=== PATIENT | female | born 1970 | race Caucasian/White ===

== ENCOUNTER 2017-08-19 10:56 | Emergency (ER) | payer SELFPAY ==
[~2017-08-19] VITALS: Ht 165.1 cm; Wt 61.0 kg
[2017-08-19] MEDS ORDERED: LORTAB 5/3255 MG PO (11:37)
[2017-08-19] MEDS ORDERED: BACTRIM DS1 TAB PO (11:37)
[2017-08-19 11:48] VITALS: BP 120/79
== END 2017-08-19 11:57 | disposition home or self-care (01) | DRG 816 ==
LOC: ED 10:56
DX: L04.2 Acute lymphadenitis of upper limb (principal)

== ENCOUNTER 2017-11-01 16:00 | Emergency (ER) | payer SELFPAY ==
[~2017-11-01] VITALS: Ht 165.1 cm; Wt 60.8 kg
[~2017-11-01 16:00] MED LIST: BACTRIM DS1 TAB PO; LORTAB 5/3255 MG PO
[2017-11-01 17:13] LABS: INFLUENZA A NONE DETECTED (NONE DETECT); INFLUENZA B NONE DETECTED (NONE DETECT)
[2017-11-01] MEDS ORDERED: AFRIN 12 HOUR0.05 % (17:15)
[2017-11-01] MEDS ORDERED: MOTRIN800 MG PO (17:15)
[2017-11-01] MEDS ORDERED: TESSALON PER100 MG PO (17:15)
[2017-11-01] MEDS ORDERED: ZITHROMAX250 MG PO (17:16)
[2017-11-01 17:20] VITALS: BP 115/82
== END 2017-11-01 17:20 | disposition home or self-care (01) | DRG 866 ==
LOC: ED 16:00
PROVIDERS: Emergency Medicine
DX: B34.9 Viral infection, unspecified (principal); F17.210 Nicotine dependence, cigarettes, uncomplicated